=== PATIENT | male | born 1995 | race Caucasian/White ===

== ENCOUNTER 2018-03-23 01:30 | Emergency (ER) | payer BC ==
[~2018-03-23] VITALS: Ht 177.8 cm; Wt 85.0 kg
[2018-03-23 01:55] VITALS: BP 124/74; PULSE 67; RESP 16; TEMP 97.6; O2SAT 97
[2018-03-23] MEDS ORDERED: NEOM1SOL7 RIGHT EAR (02:31)
--- NOTE | 2018-03-23 02:33 | PD ---
HPI Chief Complaint: ENT Complaint Time Seen by Provider: 02:27 Travel History International Travel<30 days: No Contact w/Intl Traveler<30days: No Traveled to known affect area: No History of Present Illness HPI 23-year-old male presents with right ear pain. Symptoms started today. Pain is sharp pain, constant, aggravated by palpation with no relieving factors. He reports that he has been swimming a lot recently, approximately twice per week. Denies any recent flying. Denies any tinnitus or hearing changes. Denies cough, congestion, sore throat. No other complaints. PFSH Past Medical History Medical History: Denies Significant Hx Diminished Hearing: No Past Surgical History Surgical History: No Previous Surgery Social History Alcohol Use: No Tobacco Use: No Substance Use: No Allergies-Medications (Allergen,Severity, Reaction): Coded Allergies: No Known Allergies (Unverified , 03/23/18) Review of Systems Except as stated in HPI: all other systems reviewed are Neg Physical Exam Narrative GENERAL: Well-nourished male no acute distress SKIN: Warm and dry. HEAD: Atraumatic. Normocephalic. EYES: Pupils equal and round. No scleral icterus. No injection or drainage. ENT: No nasal bleeding or discharge. Mucous membranes pink and moist. Right external ear canal is mildly erythematous. There is pain with auricular manipulation. Tympanic membrane appears normal. NECK: Trachea midline. No JVD. CARDIOVASCULAR: Regular rate and rhythm. No murmur appreciated. RESPIRATORY: No accessory muscle use. Clear to auscultation. Breath sounds equal bilaterally. Data Data Last Documented VS Vital Signs Date Time Temp Pulse Resp B/P (MAP) Pulse Ox O2 Delivery O2 Flow Rate FiO2 03/23/18 01:55 97.6 67 16 124/74 (91) 97 Orders Orders Hskubfoz-Hvdqjdvh-Vo Otic Soln (Cortispo (03/23/18 02:45) Ketorolac Inj (Toradol Inj) (03/23/18 02:45) Ed Discharge Order (03/23/18 02:31) [facility] Medical Decision Making Medical Screen Exam Complete: Yes Emergency Medical Condition: Yes Medical Record Reviewed: Yes Differential Diagnosis Otitis externa, otitis media, tympanic membrane perforation, mastoiditis Narrative Course Examination is consistent with mild right otitis externa. He will be started on Cortisporin Otic solution. Diagnosis Primary Impression: Otitis externa Additional Instructions: Medication as prescribed. Avoid getting any water in right ear canal. Return for any emergent medical conditions. Med/Other Pt SpecificInfo: Prescription(s) given Scripts Qiwmtoqx-Hywuahjxn-VE Otic Drops (Zuazsomk-Nigjtqoml-CN Otic Drops) 3.5-10,000- 1 Mg-Units-% Soln 4 DROP RIGHT EAR QID for Infection for 7 Days, BOTTLE 0 Refills Prov: Julia Mahmood MD 03/23/18 Disposition: 01 DISCHARGE HOME Condition: Stable Ezekiel Choudhary Mar 23, 2018 02:33
[2018-03-23] MEDS ORDERED: KETOROLAC TROMETHAMINE 60 MG/2 ML (IM) VIAL IM ONE (02:45)
[2018-03-23] MEDS ORDERED: NEOMYCIN/POLYMYXIN/HYDROCORT OTIC SOLN 10 ML BTL RIGHT EAR ONE (02:45)
[2018-03-23] MEDS ORDERED: NEOMYCIN/POLYMYXIN/HYDROCORT OTIC SUSP 10 ML BTL RIGHT EAR ONE (03:00)
== END 2018-03-23 03:15 | disposition home or self-care (01) ==
LOC: NEPD 01:30
DX: H60.91 Unspecified otitis externa, right ear (principal)
CPT/HCPCS: 96372; 99283; J1885